=== PATIENT | male | born 1950 | race Caucasian/White ===

== ENCOUNTER 2023-06-06 07:23 | Inpatient (IN) | payer MEDICARE, BC ==
[2023-06-05 11:41] LABS: BILIRUBIN,URINE NEGATIVE (Neg); CLARITY,URINE CLEAR (Clear); COLOR,URINE YELLOW (Yellow); GLUCOSE, URINE >=1000 mg/dl (Neg); KETONES,URINE NEGATIVE (Neg); LEUKOCYTE ESTERASE ,URINE NEGATIVE (Neg); NITRITES, URINE NEGATIVE (Neg); OCCULT BLOOD,URINE NEGATIVE (Neg); PROTEIN,URINE NEGATIVE (Neg); UROBILINOGEN,URINE 0.2 E.U/dL (0.2-1.0)
[2023-06-05 11:42] LABS: BASOPHILS # (AUTO) 0.1 X10'3 (0-0.2); BASOPHILS % (AUTO) 0.7 % (0-1); EOSINOPHILS # (AUTO) 0.2 X10'3 (0-0.9); EOSINOPHILS % (AUTO) 2.2 % (0-6); LYMPHOCYTES # (AUTO) 1.1 X10'3 (1.1-4.8); LYMPHOCYTES % (AUTO) 13.9 % (21-51); MEAN CORPUSCULAR HGB CONC 33.3 g/dL (33.0-36.5); MEAN CORPUSCULAR VOLUME 90.2 FL (78-98); MEAN PLATELET VOLUME 7.6 FL (7.4-10.4); MONOCYTES # (AUTO) 0.8 X10'3 (0-0.9); MONOCYTES % (AUTO) 10.1 % (2-12); NEUTROPHILS % (AUTO) 73.1 % (42-75); PRE OP HEMATOCRIT 47.2 % (42.0-52.0); PRE OP HEMOGLOBIN 15.7 g/dL (14.0-17.9); PRE OP PLATELET COUNT 217 X10'3 (140-440); PRE OP WHITE BLOOD COUNT 8.3 10'3 (4.8-10.8); RED BLOOD COUNT 5.23 X10'6 (4.70-6.10); RED CELL DISTRIBUTION WIDTH 15.4 % (11.5-14.5)
[2023-06-05 11:46] LABS: UA COLLECTION TYPE CLN CATCH MIDSTREAM
[2023-06-05 11:47] LABS: BACTERIA,URINE NONE SEEN /HPF (Neg); MUCUS STRANDS NONE SEEN /LPF (Neg); RBC,URINE NONE SEEN /HPF (0-2); SQUAMOUS EPITHELIAL CELL,UR FEW /LPF (FEW); WBC,URINE NONE SEEN /HPF (0-4)
[2023-06-05 12:07] LABS: ALBUMIN 3.7 G/DL (3.4-5.0); ALKALINE PHOSPHATASE 95 IU/L (46-116); CALCIUM 9.2 MG/DL (8.5-10.1); PRE OP ALT 13 U/L (30-65); PRE OP AST 20 U/L (10-37); TOTAL CARBON DIOXIDE 28.4 MMOL/L (24-32); TOTAL PROTEIN 7.3 G/DL (6.4-8.2)
[2023-06-05 12:44] LABS: BLOOD UREA NITROGEN 13 MG/DL (7-18); BUN/CREATININE RATIO 10.2 (10.0-20.0); CHLORIDE 105 MMOL/L (99-107); CREATININE 1.28 MG/DL (0.60-1.10); PRE OP ANION GAP 9 (8-16); PRE OP GLUCOSE 86 MG/DL (70-104); PRE OP POTASSIUM 4.1 MMOL/L (3.4-5.1); PRE OP SODIUM 142 MMOL/L (135-145); eGFR 55 ML/MIN
[2023-06-06] VITALS (22 sets, daily range): BP systolic 102–136; BP diastolic 66–105; PULSE 55–101; RESP 11–18; TEMP 96.9–98.5; O2SAT 91–100
[~2023-06-06] VITALS: Ht 177.8 cm; Wt 96.9 kg
[2023-06-06] MEDS: ringers solution, lacted 1,000 ML IV SCH ×2 (05:00→20:06)
[~2023-06-06 07:23] MED LIST: APIX5TAB3 PO; CALC-861 PO; DIGO250T PO; DILT180C90 PO; DOCUMENT DATE & TIME OF BETA-BLOCKER PO ONE; EMPA10TA PO; LOSA50TA64 PO; METO-411 PO; MULT-1085 PO; cefazolin 2gm/D5W 100mL 100 ML IV ONE; famotidine 20mg tablet PO ONE; ondansetron/PF 4mg/2ml inj IV PRN; vancomycin 1,500 MG in NS 300ml IV soln IV ONE
[2023-06-06] MEDS ORDERED: LIDOcaine 1% (10mg/ml) 2ml vial ONE (15:07)
[2023-06-06] MEDS ORDERED: iohexol 350MG/ML 100ml bottle IV ONE (15:11)
[2023-06-06] MEDS ORDERED: morphine 4 MG/ML inj SYRINge IV PRN (15:20)
[2023-06-06] MEDS ORDERED: proCHLORperazine 10 MG/2 ml inj IV PRN ×2 (15:20→16:45)
[2023-06-06] MEDS ORDERED: acetaminophen 1,000mg/100ml IV 100 ML IV PRN (15:20)
[2023-06-06] MEDS ORDERED: glycopyrrolate 0.2mg/ml inj ONE (15:20)
[2023-06-06] MEDS ORDERED: labetalol 20mg/4ml (5mg/ml) syringe IV PRN ×2 (15:20→16:45)
[2023-06-06] MEDS ORDERED: meperidine/PF 25mg/ml syringe IV PRN (15:20)
[2023-06-06] MEDS ORDERED: HYDROmorphone/PF 0.2 MG/ML SYRINGE IV PRN ×2 (15:20)
[2023-06-06] MEDS ORDERED: sevoflurane 250ml liquid IH ONE (15:20)
[2023-06-06] MEDS ORDERED: ringers solution, lacted 1,000 ML IV SCH (15:20)
[2023-06-06] MEDS ORDERED: morphine 2 MG/ML inj. syringe IV PRN (15:20)
[2023-06-06] MEDS ORDERED: ondansetron/PF 4mg/2ml inj IV PRN ×2 (15:20→16:45)
[2023-06-06] MEDS ORDERED: neostigmine methylsulfate 1 MG/ML 10ml vial ONE (15:20)
[2023-06-06] MEDS ORDERED: hydrALAZINE 20mg/ml inj. IV PRN ×2 (15:20→16:45)
[2023-06-06] MEDS ORDERED: fentaNYL/PF 50MCG/1 ML 2ML syringe ONE (15:24)
[2023-06-06] MEDS ORDERED: midazolam 1 mg/ML 2ml injection ONE (15:26)
[2023-06-06] MEDS ORDERED: ePHEDrine 50MG/ML INJ. ONE ×3 (15:48→15:56)
[2023-06-06] MEDS ORDERED: ondansetron/PF 4mg/2ml inj ONE (15:55)
[2023-06-06] MEDS ORDERED: 0.9 % SODIUM CHLORIDE 10 ML VIAL ONE (15:55)
[2023-06-06] MEDS ORDERED: dexamethasone sod phosphate 4mg/ml inj. ONE (15:55)
[2023-06-06] MEDS ORDERED: propofol inj 20 ML IV ONE (15:55)
[2023-06-06] MEDS ORDERED: rocuronium 10mg/ml inj IV ONE (15:55)
[2023-06-06] MEDS ORDERED: LIDOcaine 2% (20mg/ml) 5ml vial ONE (15:55)
[2023-06-06] MEDS ORDERED: heparin 1,000unit/ml 10ml vial 10 ML ONE (15:56)
[2023-06-06] MEDS ORDERED: potassium CL 10mEq/100ml bag 100 ML IV PRN (16:45)
[2023-06-06] MEDS ORDERED: ALPRAZolam 0.25mg tablet PO PRN (16:45)
[2023-06-06] MEDS ORDERED: diphenhydrAMINE 25mg capsule PO PRN (16:45)
[2023-06-06] MEDS ORDERED: docusate sod 100mg capsule PO PRN (16:45)
[2023-06-06] MEDS ORDERED: magnesium 2GM in 50ml NS 50 ML IV PRN (16:45)
[2023-06-06] MEDS ORDERED: pantoprazole 40mg Tablet.DR PO PRN (16:45)
[2023-06-06] MEDS ORDERED: magnesium 4gm in 100ml NS 100 ML IV PRN (16:45)
[2023-06-06] MEDS ORDERED: normal saline 1000ml 1,000 ML IV SCH (16:45)
[2023-06-06] MEDS ORDERED: acetaminophen 325mg tablet PO PRN (16:45)
[2023-06-06] MEDS ORDERED: potassium Cl 20mEq/100mL bag 100 ML IV PRN (16:45)
[2023-06-06] MEDS ORDERED: potassium Cl 40MEQ/270ML bag 250 ML IV PRN (16:45)
[2023-06-06] MEDS ORDERED: potassium Cl 20 mEq SR tablet PO PRN (16:45)
[2023-06-06] MEDS ORDERED: potassium Cl 40MEQ/1/2NS 520ml 520 ML IV PRN (16:45)
--- NOTE | 2023-06-06 16:56 | NUR ---
Received from OR via BED, accompanied by Anesthesiologist DR. BROWN and report given by Anesthesiologist AND OR NURSE. PT ARRIVED DROWSY BUT ABLE TO RESPOND TO VERBAL STIMULI ON 6 L OF 02 VIA MASK. VSS. PT HAS 18 G IV TO RIGHT FOREARM AND ART LINE TO LEFT WRIST AND PRESSURE DEVICE INTACT. PT HAS DRESSING TO R GROIN THAT IS C/D/I, NO SWELLING OR BLEEDING NOTED. NEURO ASSESSMENT COMPLETED. PUSH, PULL, HOME APPLIANCE WASHING MACHINE MECHANIC, SMILE ALL WITHIN NORMAL LIMITS. BILATERAL PEDAL PULSES STRONG. VSS. WILL CONTINUE TO MONITOR AND RECHECK GROIN SITES. Addendum: 06/06/23 at 1708 by Eliseo Delarosa RN Amended: Links added.
--- NOTE | 2023-06-06 17:35 | NUR ---
DISCONTINUED LEFT RADIAL ARTLINE. NO S/S OF BLEEDING OR HEMATOMA. HEMOSTASIS OBTAINED AFTER 15 MINUTES. APPLIED DRESSING. PATIENT TOLERATED PROCEDURE WELL. KEEP MONITORING. Addendum: 06/06/23 at 1803 by Eliseo Delarosa RN Amended: Links added.
--- NOTE | 2023-06-06 17:50 | NUR ---
DISCONTINUE STOP-COCK FROM RIGHT GROIN SITE. NO S/S OF BLEEDING OR HEMATOMA. APPLIED GAUZE AND TEGADERM. PATIENT TOLERATED PROCEDURE WELL.
--- NOTE | 2023-06-06 17:56 | NUR ---
PATIENT HAS MET ALL CRITERIA FOR TRANSFER TO PCU FLOOR. VSS. DRESSINGS INTACT. BED LOW, CALL LIGHT PRESENT AND 2 RAILS UP. RN PRESENT TO ACCEPT CARE OF PATIENT AND REPORT HAS BEEN CALLED. ALL QUESTIONS ANSWERED TO ACCEPTING RN. Addendum: 06/06/23 at 1805 by Eliseo Delarosa RN Amended: Links added.
--- NOTE | 2023-06-06 19:07 | NUR ---
Patient in room PCU 3026. I have received report from Daksha and had the opportunity to ask questions and assume patient care.
--- NOTE | 2023-06-06 23:10 | NUR ---
Pt ambulated in hallway 300 feet with steady gait.
[2023-06-07] MEDS: sod chloride 0.9% 10ml flush syringe IV SCH ×2 (00:28→07:31)
[2023-06-07 02:18] VITALS: BP 113/77; PULSE 87; RESP 18; TEMP 98.5; O2SAT 93
--- NOTE | 2023-06-07 06:11 | NUR ---
Pt ambulated 600 [address] in hallway with steady gait.
--- NOTE | 2023-06-07 06:12 | NUR ---
Problems reprioritized. Patient report given, questions answered & plan of care reviewed with Daksha.
[2023-06-07 06:30] VITALS: BP 133/85; PULSE 100; RESP 20; TEMP 98; O2SAT 94
[2023-06-07 07:16] LABS: BASOPHILS # (AUTO) 0.1 X10'3 (0-0.2); BASOPHILS % (AUTO) 0.5 % (0-1); EOSINOPHILS % (AUTO) 0 % (0-6); HEMATOCRIT 44.2 % (42.0-52.0); HEMOGLOBIN 14.6 g/dl (14.0-17.9); LYMPHOCYTES # (AUTO) 0.5 X10'3 (1.1-4.8); LYMPHOCYTES % (AUTO) 4.1 % (21-51); MEAN CORPUSCULAR HEMOGLOBIN 29.9 PG (27.0-31.0); MEAN CORPUSCULAR HGB CONC 33.1 g/dL (33.0-36.5); MEAN CORPUSCULAR VOLUME 90.2 FL (78-98); MEAN PLATELET VOLUME 8.3 FL (7.4-10.4); MONOCYTES # (AUTO) 0.6 X10'3 (0-0.9); MONOCYTES % (AUTO) 4.7 % (2-12); NEUTROPHILS # (AUTO) 11.5 X10'3 (1.8-7.7); NEUTROPHILS % (AUTO) 90.7 % (42-75); PLATELET COUNT 210 X10'3 (140-440); RED BLOOD COUNT 4.89 X10'6 (4.70-6.10); RED CELL DISTRIBUTION WIDTH 15.3 % (11.5-14.5); WHITE BLOOD COUNT 12.6 X10'3 (4.5-11.0)
[2023-06-07 07:34] LABS: PROTHROMBIN TIME 10.9 SECONDS (9.0-12.0)
[2023-06-07 07:53] LABS: ALANINE AMINOTRANSFERASE 17 U/L (12-78); ALBUMIN 3.3 G/DL (3.4-5.0); ALKALINE PHOSPHATASE 86 IU/L (46-116); ANION GAP 8 (8-16); ASPARTATE AMINO TRANSFERASE 20 U/L (10-37); BLOOD UREA NITROGEN 15 MG/DL (7-18); BUN/CREATININE RATIO 12.4 (10.0-20.0); CHLORIDE 105 MMOL/L (99-107); CREATININE 1.21 MG/DL (0.60-1.10); GLUCOSE 118 MG/DL (70-104); MAGNESIUM 2.2 MG/DL (1.5-2.4); POTASSIUM 4.5 MMOL/L (3.5-5.1); PRO BRAIN NATRIURETIC PEPTIDE 1390 PG/ML (0-125); SODIUM 141 MMOL/L (135-145); TOTAL CARBON DIOXIDE 28.3 MMOL/L (24-32); TOTAL PROTEIN 6.7 G/DL (6.4-8.2); eCRCL 55 ML/MIN; eGFR 59 ML/MIN
[2023-06-07] MEDS ORDERED: CALCIUM CARBONATE PO SCH (08:00)
[2023-06-07] MEDS ORDERED: MAG OXIDE PO SCH (08:00)
[2023-06-07] MEDS ORDERED: EMPAGLIFLOZIN 10 MG TABLET PO SCH (08:00)
[2023-06-07] MEDS ORDERED: digoxin 250mcg (0.25mg) tablet PO SCH (08:00)
[2023-06-07] MEDS ORDERED: metoprolol succinate 25mg (24-HOUR) SR. Tablet PO SCH (08:00)
[2023-06-07] MEDS ORDERED: apixaban 5mg tablet PO SCH (08:00)
[2023-06-07] MEDS ORDERED: [UNRECOGNIZED DRUG - OTHER] PO SCH (08:00)
[2023-06-07] MEDS ORDERED: losartan 50mg tablet PO SCH (08:00)
[2023-06-07] MEDS ORDERED: multivitamins, therapeutics tablet PO SCH (08:00)
[2023-06-07] MEDS ORDERED: diltiazem CD 180mg cap (once-daily) PO SCH (08:00)
[2023-06-07 10:45] VITALS: BP 101/63; PULSE 89; RESP 18; TEMP 98.9; O2SAT 97
--- NOTE | 2023-06-07 13:15 | NUR ---
PT DISCHARGED TO HOME. ALL DC ORDERS EXPLAINED TO PATIENT WITH PATIENT VERBALIZING UNDERSTANDING REGARDING PLAN OF CARE. PT WILL FOLLOW UP AT [facility] AND HAS HIS APPT SCHEDULED. PT LEFT WALKING TO THE LOBBY WHERE HIS SON IS WAITING TO TAKE HOME VSS A/OX3 NEURO VASCULAR CHECKS WNL
== END 2023-06-07 13:11 | disposition home or self-care (01) | DRG 274 ==
LOC: PAS IN 07:23 → PCU 3S 17:55
PROVIDERS: ADMIT Student in an Organized Health Care Education/Training Program; ATTEND Student in an Organized Health Care Education/Training Program
PROC: B24BZZ4 Ultrasonography of Heart with Aorta, Transesophageal (ICD-10-PCS; 2023-06-06)
PROC: 03HY32Z Insertion of Monitoring Device into Upper Artery, Percutaneous Approach (ICD-10-PCS; 2023-06-06)
PROC: 02L73DK Occlusion of Left Atrial Appendage with Intraluminal Device, Percutaneous Approach (ICD-10-PCS; principal; 2023-06-06 15:20)
DX: I48.91 Unspecified atrial fibrillation (principal); Z00.6 Encounter for examination for normal comparison and control in clinical research program; I50.22 Chronic systolic (congestive) heart failure; I11.0 Hypertensive heart disease with heart failure
CPT/HCPCS: 33340; 36415; 71045; 71046; 76937; 80053; 81001; 82948; 83735; 83880; 85025; 85347; 85610; 85730; 86885; 86900; 86901; 86920; 87081; 93005; 93308; 93312; 93325; A4618; A6258; A6449; C1760; C1889; C1893; C1894; G0378; J0690; J1100; J1644; J2250; J2405; J2704; J2710; J3010; J3370; J3490; J7030; J7040; J7120; Q9967

== ENCOUNTER 2023-07-24 08:28 | Outpatient (CLI) | payer MEDICARE, BC ==
[~2023-07-24 08:28] MED LIST changes: -DOCUMENT DATE & TIME OF BETA-BLOCKER PO ONE; -cefazolin 2gm/D5W 100mL 100 ML IV ONE; -famotidine 20mg tablet PO ONE; -ondansetron/PF 4mg/2ml inj IV PRN; -vancomycin 1,500 MG in NS 300ml IV soln IV ONE
[2023-07-24 08:54] LABS: BASOPHILS # (AUTO) 0.2 X10'3 (0-0.2); BASOPHILS % (AUTO) 1.8 % (0-1); EOSINOPHILS # (AUTO) 0.7 X10'3 (0-0.9); EOSINOPHILS % (AUTO) 7.5 % (0-6); HEMATOCRIT 38.9 % (42.0-52.0); HEMOGLOBIN 12.9 g/dl (14.0-17.9); LYMPHOCYTES # (AUTO) 0.7 X10'3 (1.1-4.8); LYMPHOCYTES % (AUTO) 8.3 % (21-51); MEAN CORPUSCULAR HEMOGLOBIN 30.2 PG (27.0-31.0); MEAN CORPUSCULAR HGB CONC 33.1 g/dL (33.0-36.5); MEAN CORPUSCULAR VOLUME 91.3 FL (78-98); MEAN PLATELET VOLUME 6.7 FL (7.4-10.4); MONOCYTES # (AUTO) 0.9 X10'3 (0-0.9); MONOCYTES % (AUTO) 10.3 % (2-12); NEUTROPHILS # (AUTO) 6.5 X10'3 (1.8-7.7); NEUTROPHILS % (AUTO) 72.1 % (42-75); PLATELET COUNT 485 X10'3 (140-440); RED BLOOD COUNT 4.26 X10'6 (4.70-6.10); WHITE BLOOD COUNT 9.1 X10'3 (4.5-11.0)
[2023-07-24 09:04] LABS: APTT 29 SECONDS (22-32); PROTHROMBIN TIME 11.1 SECONDS (9.0-12.0)
[2023-07-24 09:29] LABS: ALKALINE PHOSPHATASE 129 IU/L (46-116); ANION GAP 8 (8-16); BILIRUBIN,TOTAL 0.5 MG/DL (0.1-1.0); CHLORIDE 106 MMOL/L (99-107); SODIUM 141 MMOL/L (135-145); TOTAL PROTEIN 7.3 G/DL (6.4-8.2)
[2023-07-24 09:38] LABS: ALANINE AMINOTRANSFERASE 16 U/L (12-78); ALBUMIN 2.8 G/DL (3.4-5.0); ALBUMIN/GLOBULIN RATIO 0.6 (1.1-1.5); ASPARTATE AMINO TRANSFERASE 24 U/L (10-37); BLOOD UREA NITROGEN 11 MG/DL (7-18); BUN/CREATININE RATIO 8.7 (10.0-20.0); CALCIUM 8.7 MG/DL (8.5-10.1); CREATININE 1.27 MG/DL (0.60-1.10); GLUCOSE 89 MG/DL (70-104); eGFR 55 ML/MIN
[2023-07-24] MEDS ORDERED: iohexol 350MG/ML 100ml bottle IV ONE (09:45)
== END 2023-07-24 23:59 | disposition home or self-care (01) ==
LOC: RAD 08:28
PROVIDERS: ATTEND Student in an Organized Health Care Education/Training Program
DX: I48.91 Unspecified atrial fibrillation (principal); I25.10 Atherosclerotic heart disease of native coronary artery without angina pectoris; M47.814 Spondylosis without myelopathy or radiculopathy, thoracic region; I51.7 Cardiomegaly; K44.9 Diaphragmatic hernia without obstruction or gangrene; Z95.818 Presence of other cardiac implants and grafts
CPT/HCPCS: 36415; 75572; 80053; 85025; 85610; 85730; J3490; Q9967

== ENCOUNTER 2023-07-30 11:14 | Day surgery (SDC) | payer MEDICARE, BC ==
[2023-07-30] VITALS (12 sets, daily range): BP systolic 109–136; BP diastolic 66–89; PULSE 65–79; RESP 12–20; TEMP 97.8; O2SAT 95–98
[~2023-07-30] VITALS: Ht 177.8 cm; Wt 92.4 kg
[2023-07-30] MEDS ORDERED: MIDAZolam 1mg/ml 10ml vial IV ONE (11:50)
[2023-07-30] MEDS ORDERED: fentaNYL/PF 50MCG/1 ML 2ML syringe IV ONE (11:50)
[2023-07-30] MEDS ORDERED: PERFLUTREN PROTEIN-A MICROSPHR (Optison) 0.22 MG/ML 3ML VIAL IV ONE (12:58)
== END 2023-07-30 14:40 | disposition home or self-care (01) ==
LOC: SSTAY O 11:14
PROVIDERS: ATTEND Student in an Organized Health Care Education/Training Program
DX: I48.91 Unspecified atrial fibrillation (principal); I34.81 Nonrheumatic mitral (valve) annulus calcification; Z95.818 Presence of other cardiac implants and grafts
CPT/HCPCS: 93312; 93325; J2250; J3010; J7030; Q9956; 96360; A4620